=== PATIENT | female | born 1945 | race Caucasian/White ===

== ENCOUNTER 2018-06-03 11:03 | Outpatient (CLI) | payer MEDICARE, MEDICAID ==
--- NOTE | 2018-06-03 14:41 | BD ---
BONE DENSITOMETRY USING DEXA: Date: 06/03/18 HISTORY: Postmenopausal screening for osteoporosis. FINDINGS: Lumbar Spine: BMD (g/cm2) L1 0.905 T-Score: -0.8 Z-Score: 1.2 L2 1.168 T-Score: 1.3 Z-Score: 3.5 L3 0.982 T-Score: -0.9 Z-Score: 1.4 L4 0.952 T-Score: -1.9 Z-Score: 1.4 L1-L4 1.010 T-Score: -0.3 Z-Score: 1.9 Femoral Neck: 0.450 T-Score: -3.6 Z-Score: -1.6 Total Femur: 0.714 T-Score: -1.9 Z-Score: -0.2 IMPRESSION: Osteoporosis. POS: [facility]
== END 2018-06-03 11:04 | disposition home or self-care (01) ==
LOC: BICMAMMO 11:03
PROVIDERS: ATTEND Specialist
DX: Z12.31 Encounter for screening mammogram for malignant neoplasm of breast (principal); Z13.820 Encounter for screening for osteoporosis; N63.10 Unspecified lump in the right breast, unspecified quadrant; N63.20 Unspecified lump in the left breast, unspecified quadrant; M81.0 Age-related osteoporosis without current pathological fracture
CPT/HCPCS: 77063; 77067; 77080

== ENCOUNTER 2019-01-15 16:29 | Emergency (ER) | payer MEDICARE, MEDICAID ==
[2019-01-15] MEDS ORDERED: HYDROcodone/Acetaminophen 10/325 mg Tablet ONE (16:55)
--- NOTE | 2019-01-15 17:08 | RAD ---
XR Foot Lt 3 View STANDARD HISTORY: Injury, left foot pain FINDINGS: No fracture or dislocation is identified.
== END 2019-01-15 17:35 | disposition home or self-care (01) ==
LOC: ERS 16:29
DX: S93.602A Unspecified sprain of left foot, initial encounter (principal); K21.9 Gastro-esophageal reflux disease without esophagitis; I10 Essential (primary) hypertension; F41.9 Anxiety disorder, unspecified; F17.210 Nicotine dependence, cigarettes, uncomplicated; Z79.82 Long term (current) use of aspirin; Z79.899 Other long term (current) drug therapy; W18.11XA Fall from or off toilet without subsequent striking against object, initial encounter

== ENCOUNTER 2019-02-24 12:32 | Outpatient (CLI) | payer MEDICARE, MEDICAID ==
--- NOTE | 2019-02-24 13:05 | RAD ---
2 views of the chest: 02/24/2019 COMPARISON: 05/06/2005 HISTORY: COPD FINDINGS: Numerous old left-sided rib fractures are noted. There is a left shoulder arthroplasty pres ent. There is prominent dextroscoliosis at the thoracolumbar junction. Mild stable increased linear interstitial density. No pneumothorax or pleural fluid. No focal consolidation or alveolar edema. Mil d hyperinflation again noted. IMPRESSION: Mild increased linear interstitial density with pulmonary hyperinflation consistent with the provided history of COPD. No acute findings.
--- NOTE | 2019-02-24 13:31 | RAD ---
LUMBAR SPINE TWO VIEWS: 02/24/19 HISTORY: Fall about one and a half months ago. Lower back pain. FINDINGS/IMPRESSION: Comparison made to exam of 06/04/11. Degenerative changes with dextroscoliosis of the lumbar spine is again seen. An old fracture of the L 2 vertebral body is again seen. There are vascular calcifications. A left hip arthroplasty is present . POS: [facility]
== END 2019-02-24 12:33 | disposition home or self-care (01) ==
LOC: BICRAD 12:32
PROVIDERS: ATTEND Specialist
DX: J44.9 Chronic obstructive pulmonary disease, unspecified (principal); M54.5 Low back pain; R91.8 Other nonspecific abnormal finding of lung field; M47.816 Spondylosis without myelopathy or radiculopathy, lumbar region; M41.9 Scoliosis, unspecified; J98.4 Other disorders of lung; I70.90 Unspecified atherosclerosis; Z96.642 Presence of left artificial hip joint
CPT/HCPCS: 71046; 72100

== ENCOUNTER 2019-03-18 11:54 | Emergency (ER) | payer MEDICARE, OTHER ==
--- NOTE | 2019-03-18 13:10 | CT ---
CT CERVICAL SPINE NONCONTRAST: DATE: 03/18/2019 HISTORY: cervical trauma 73-year-old female. COMPARISON: 11/29/2014 FINDINGS: There are no jumped or perched facets. There is no evidence of acute fracture. The vertebral body hei ghts are maintained. There is no prevertebral soft tissue swelling. New finding of soft tissue thickening at the left side of the oral pharynx, with effacement of left glossopharyngeal sulcus, and involvement of the left side of lingual tonsil. The previously demonstrated fracture of the body of C2 has healed, with chronic anterior subluxation of the cranium, C1, and the odontoid process, rel ative to C2 and the rest of the cervical spine. High-grade degenerative disc disease at C5-6 and C6-7. High-grade facet DJD on the left at C2-3, C3-4, and C4-5, and to a lesser degree on the right a t C4-5. IMPRESSION: 1. No evidence of acute fracture or acute traumatic subluxation. 2. Possibility of head and neck cancer: Possible infiltrative neoplastic lesion at left side of oroph arynx. Recommend ENT consultation for direct visualization. 3. Sequelae of prior type III odontoid fracture, with deformity. 4. Cervical spondylosis, with high-grade degenerative disc disease at C5-6 and C6-7, and high-grade l eft facet osteoarthrosis at mid and upper levels.
[2019-03-18 13:20] LABS: #Monocytes 0.5 thou/uL (0.11-0.59); #Neutrophils 5.5 thou/uL (1.40-6.50); %Basophils 0.2 % (0.0-1.0); %Eosinophils 0.7 % (0.0-10.0); %Lymphocytes 14.4 % (21.0-51.0); %Monocytes 7.1 % (0.0-10.0); %Neutrophils 77.6 % (42.0-75.0); Hemoglobin 12.8 g/dL (12.0-16.0); Mean Corpuscular HGB CONC 33.9 g/dL (32.0-36.0); Mean Corpuscular Hemoglobin 31.8 pg (27.0-31.0); Mean Corpuscular Volume 93.9 fL (78.0-98.0); Mean Platelet Volume 8.1 fL (7.4-10.4); Platelet Count 202 thou/uL (130-400); RBC Distribution Width 11.7 % (11.5-14.5); Red Blood Cell (RBC) Count 4.01 mill/uL (4.20-5.40); White Blood Cell (WBC) Count 7.1 thou/uL (4.8-10.8)
[2019-03-18 13:47] LABS: ALT (SGPT) 10 U/L (8-55); AST (SGOT) 17 U/L (5-34); Albumin 4.2 g/dL (3.4-4.8); Alkaline Phosphatase 63 U/L (40-150); Anion Gap 12 mmol/L (10-20); BUN (Urea Nitrogen) 8 mg/dL (9.8-20.1); Bilirubin, Total 0.8 mg/dL (0.2-1.2); Calc. Creatinine Clearance 0 mL/min (70-130); Calcium 9.5 mg/dL (7.8-10.44); Carbon Dioxide 25 mmol/L (23-31); Chloride 97 mmol/L (98-107); Estimated GFR-MDRD 73; Glucose 78 mg/dL (83-110); Potassium 3.5 mmol/L (3.5-5.1); Protein, Total 7.2 g/dL (6.0-8.3); Sodium 130 mmol/L (136-145)
[2019-03-18 13:55] LABS: Bilirubin Negative (Negative); Blood, Urine Negative (Negative); Clarity Turbid (Clear); Glucose, Urine (Dipstick) Normal (Negative); Leukocyte 500 Leu/uL (Negative); Nitrite Negative (Negative); Protein, Urine (Dipstick) Negative (Neg-Trace); RBC/HPF 0-3 HPF (0-3); Squamous Epithelial 0-3 HPF (0-3); Urobilinogen Normal mg/dL (Less than 2); WBC/HPF Greater than 50 HPF (0-3)
[2019-03-18 14:12] LABS: Bacteria/HPF 1+ HPF (None Seen)
--- NOTE | 2019-03-22 08:27 | CT ---
CT OF THE BRAIN WITHOUT CONTRAST: 03/18/19 HISTORY: Frontal headaches status post fall. FINDINGS: Comparison made with CT scan of 10/31/15 and MRI of 01/17/16. Encephalomalacia in the right frontoparietal lobe and postop changes of right frontal craniotomy are again seen. There are calcifications in the region of the cavernoma in the left frontal lobe. Ventric ular size is stable and the basilar cisterns are patent. No evidence of acute infarct, hemorrhage, midline shift, or abnormal extra-axial fluid collections ar e seen. The basilar cisterns are patent. No acute calvarial fracture is seen. IMPRESSION: No CT evidence of acute intracranial process. POS: [facility]
--- NOTE | 2019-03-22 09:05 | CT ---
CT CERVICAL SPINE NONCONTRAST: DATE: 03/18/2019 HISTORY: cervical trauma 73-year-old female. COMPARISON: 11/29/2014 FINDINGS: There are no jumped or perched facets. There is no evidence of acute fracture. The vertebral body hei ghts are maintained. There is no prevertebral soft tissue swelling. New finding of soft tissue thickening at the left side of the oral pharynx, with effacement of left glossopharyngeal sulcus, and involvement of the left side of lingual tonsil. The previously demonstrated fracture of the body of C2 has healed, with chronic anterior subluxation of the cranium, C1, and the odontoid process, rel ative to C2 and the rest of the cervical spine. High-grade degenerative disc disease at C5-6 and C6-7. High-grade facet DJD on the left at C2-3, C3-4, and C4-5, and to a lesser degree on the right a t C4-5. IMPRESSION: 1. No evidence of acute fracture or acute traumatic subluxation. 2. Possibility of head and neck cancer: Possible infiltrative neoplastic lesion at left side of oroph arynx. Recommend ENT consultation for direct visualization. 3. Sequelae of prior type III odontoid fracture, with deformity. 4. Cervical spondylosis, with high-grade degenerative disc disease at C5-6 and C6-7, and high-grade l eft facet osteoarthrosis at mid and upper levels. Transcribed Date/Time: 03/22/2019 9:05 AM
== END 2019-03-18 15:08 | disposition home or self-care (01) ==
LOC: ERS 11:54
DX: S05.12XA Contusion of eyeball and orbital tissues, left eye, initial encounter (principal); S05.11XA Contusion of eyeball and orbital tissues, right eye, initial encounter; N39.0 Urinary tract infection, site not specified; M53.82 Other specified dorsopathies, cervical region; I10 Essential (primary) hypertension; K21.9 Gastro-esophageal reflux disease without esophagitis; F41.9 Anxiety disorder, unspecified; F17.210 Nicotine dependence, cigarettes, uncomplicated; Z79.899 Other long term (current) drug therapy; Z79.82 Long term (current) use of aspirin; W18.30XA Fall on same level, unspecified, initial encounter; Y92.009 Unspecified place in unspecified non-institutional (private) residence as the place of occurrence of the external cause
CPT/HCPCS: 36415; 70450; 72125; 80053; 81003; 81015; 84484; 85025; 87077; 87086; 87186

== ENCOUNTER 2019-06-17 03:27 | Emergency (ER) | payer MEDICARE, OTHER ==
[2019-06-17] MEDS ORDERED: Ondansetron PF 4 MG/2 ML Vial ONE (04:54)
[2019-06-17] MEDS ORDERED: Fentanyl 100 MCG/2 ML VIAL ONE (04:54)
[2019-06-17] MEDS ORDERED: D5 LR 500 ML IV SCH (05:15)
[2019-06-17 05:21] LABS: #Basophils 0.1 thou/uL (0.0-0.2); #Lymphocytes 0.9 thou/uL (1.20-3.40); #Neutrophils 8.3 thou/uL (1.40-6.50); %Basophils 0.5 % (0.0-1.0); %Eosinophils 0.4 % (0.0-10.0); %Lymphocytes 8.7 % (21.0-51.0); %Monocytes 9.5 % (0.0-10.0); %Neutrophils 80.8 % (42.0-75.0); Hemoglobin 14.5 g/dL (12.0-16.0); Mean Corpuscular HGB CONC 32.7 g/dL (32.0-36.0); Mean Corpuscular Hemoglobin 31.7 pg (27.0-31.0); Mean Platelet Volume 7.6 fL (7.4-10.4); Platelet Count 196 thou/uL (130-400); RBC Distribution Width 11.5 % (11.5-14.5); Red Blood Cell (RBC) Count 4.57 mill/uL (4.20-5.40); White Blood Cell (WBC) Count 10.3 thou/uL (4.8-10.8)
[2019-06-17 05:49] LABS: ALT (SGPT) 10 U/L (8-55); AST (SGOT) 25 U/L (5-34); Albumin 3.5 g/dL (3.4-4.8); Alkaline Phosphatase 173 U/L (40-110); Anion Gap 15 mmol/L (10-20); BUN (Urea Nitrogen) 13 mg/dL (9.8-20.1); Bilirubin, Total 1.4 mg/dL (0.2-1.2); Calc. Creatinine Clearance 0 mL/min (70-130); Carbon Dioxide 20 mmol/L (23-31); Chloride 107 mmol/L (98-107); Estimated GFR-MDRD 70; Globulin 2.8 g/dL (2.4-3.5); Glucose 112 mg/dL (83-110); Lipase Less than 4 U/L (8-78); Protein, Total 6.3 g/dL (6.0-8.3); Sodium 137 mmol/L (136-145)
[2019-06-17 08:05] LABS: Blood, Urine Small (Negative); Glucose, Urine (Dipstick) 500 mg/dL (Negative); Leukocyte Negative (Negative); Nitrite Negative (Negative); Protein, Urine (Dipstick) Negative (Neg-Trace)
[2019-06-17 08:09] LABS: Clarity Clear (Clear)
[2019-06-17] MEDS ORDERED: Acetaminophen 500 MG TAB ONE (08:12)
[2019-06-17 08:14] LABS: Bilirubin Small (Negative); Urobilinogen 0.2 mg/dL (Less than 2)
[2019-06-17 08:25] LABS: RBC/HPF 0-3 HPF (0-3); Transitional Epithelial 0-3 HPF (None Seen); WBC/HPF 0-3 HPF (0-3)
[2019-06-17 08:26] LABS: Bacteria/HPF Rare-Few HPF (None Seen)
--- NOTE | 2019-06-17 08:33 | CT ---
PRELIMINARY REPORT/[facility]/EMERGENCY AFTER HOURS PROCEDURE: PROCEDURE INFORMATION: Exam: CT Abdomen And Pelvis With Contrast Exam date and time: 06/17/2019 4:30 AM Clinical history: 73 years old, female; Abdominal pain; Generalized; Patient HX: PT from home called EMS after going to bed around 1300 due to feeling sick and nausea. Woke up with stomach cramps and de ficated on self in bed. Surgical history of hysterectomy TECHNIQUE: Imaging protocol: Computed tomography of the abdomen and pelvis with intravenous contrast. COMPARISON: CT Abdomen Pelvis WO Con 05/21/2019 5:41 AM FINDINGS: Lungs: No consolidations in the lung bases. Mediastinum: Small hiatal hernia. Liver: Stable hypodensities in the liver. Gallbladder and bile ducts: Tiny layering gallstones. The gallbladder is distended, stable finding. N o biliary dilation. Pancreas: No pancreatic mass or ductal dilation. Spleen: No mass. Adrenals: No adrenal nodules. Kidneys and ureters: No enhancing mass or hydronephrosis. Stomach and bowel: Nonspecific debris in the fundus of the stomach. Moderate air-fluid distention of the stomach. Colonic wall thickening and hyperemia, predominantly of the transverse and descending co leonid. No bowel obstruction. Appendix: The appendix is not visualized. Intraperitoneal space: No free air or free fluid. Vasculature: Atherosclerosis of the aorta without aneurysm. Lymph nodes: No lymphadenopathy. Bladder: Normal bladder. Reproductive: The uterus is not visualized. No adnexal masses. Stable left ovarian dermoid cyst. Bones/joints: Old rib fractures. Old bilateral inferior pubic rami fractures. Left hip arthroplasty. Severe chronic fracture deformities of L1 and L2. Soft tissues: No acute findings. IMPRESSION: Findings consistent with colitis predominantly involving transverse and descending colon. Stool diste ntion of the rectosigmoid colon. Rectum is distended to 7.6 cm. Thank you for allowing us to participate in the care of your patient. Dictated and Authenticated by: Bhavna Benedict MD 06/17/2019 4:55 AM Central Time ([place] & [place]) FINAL REPORT CT ABDOMEN AND PELVIS WITH IV CONTRAST: IMPRESSION: I agree with the preliminary report given by Corine. POS: [facility]
[2019-06-17] MEDS ORDERED: Iopamidol-370 76% 500 ML 1 ML ONE (15:03)
== END 2019-06-17 08:45 | disposition home or self-care (01) ==
LOC: ERS 03:27
DX: K52.9 Noninfective gastroenteritis and colitis, unspecified (principal); I10 Essential (primary) hypertension; K21.9 Gastro-esophageal reflux disease without esophagitis; M81.0 Age-related osteoporosis without current pathological fracture; F41.9 Anxiety disorder, unspecified; F17.210 Nicotine dependence, cigarettes, uncomplicated; Z79.899 Other long term (current) drug therapy; Z79.82 Long term (current) use of aspirin
CPT/HCPCS: 36415; 51701; 74177; 80053; 81003; 81015; 83690; 85025; 87086; 96361; 96374; 96375; A4353; J2405; J3010; J7121; Q9967

== ENCOUNTER 2019-08-03 15:47 | Emergency (ER) | payer MEDICARE, OTHER ==
--- NOTE | 2019-08-03 17:12 | CT ---
CT BRAIN NONCONTRAST: DATE: 08/03/2019 HISTORY: 74-year-old female status post acute head trauma from fall. Posttraumatic headache. COMPARISON: 10/31/2015, 03/18/2019 FINDINGS: Approximately 1.5 cm left frontal lobe intra-axial lesion with coarse calcifications. Prior MRI demon strated cavernous malformation. Moderately large region of encephalomalacia and gliosis involving the upper portion of the right cere maikel involving posterior upper frontal lobe and adjacent parietal lobe. Overlying right upper old craniotomy changes. Ex vacuo dilation of portion of right lateral ventricle body. No obstructive hydr ocephalus. No acute intra-axial hemorrhage, mass effect, midline shift, or extra-axial fluid collection. No acute calvarial fracture. No interval change overall. IMPRESSION: 1. No acute intracranial findings. 2. Moderately large region of old insult in the right upper cerebrum with overlying old craniotomy ch anges. 3. Left frontal lobe cavernous malformation.
== END 2019-08-03 18:37 | disposition home or self-care (01) ==
LOC: ERS 15:47
DX: S00.83XA Contusion of other part of head, initial encounter (principal); M79.10 Myalgia, unspecified site; I10 Essential (primary) hypertension; F41.9 Anxiety disorder, unspecified; Z87.891 Personal history of nicotine dependence; W01.10XA Fall on same level from slipping, tripping and stumbling with subsequent striking against unspecified object, initial encounter
CPT/HCPCS: 70450

== ENCOUNTER 2020-01-21 00:55 | Emergency (ER) | payer MEDICARE, OTHER ==
--- NOTE | 2020-01-21 07:00 | CT ---
PRELIMINARY REPORT/[facility]/EMERGENCY AFTER HOURS PROCEDURE: EXAM: CT Head and Cervical Spine Without IV contrast. CLINICAL HISTORY: PT FROM [place] S/P MECHANICAL FALL. HEMATOMA ON R ELBOW A&O X4 NO LOC. TECHNIQUE: Axial computed tomography images were acquired of the head and the cervical spine without intravenous contrast. Sagittal and coronal reformatted images were obtained of the cervical spine. COMPARISON: 08/03/2019. FINDINGS: BRAIN: No acute intraparenchymal hemorrhage. No mass lesion. No CT evidence for acute territorial infarct. N o midline shift or extra-axial collection. Encephalomalacia in the right frontal lobe related to a p rior mass resection. 1.2 x 0.9 cm dystrophic calcification in the left frontal lobe. Mild generaliz ed cerebral atrophy. Arteriosclerosis. VENTRICLES No hydrocephalus. ORBITS The orbits are unremarkable. SINUSES AND MASTOIDS The paranasal sinuses and mastoid air cells are clear. SOFT TISSUES No significant facial or scalp soft tissue swelling evident. No radiopaque foreign body is seen. Ath erosclerosis of the bilateral carotid vessels. BONES No acute osseous pathology evident. Right frontotemporal craniotomy with bridging hardware. No acute fracture is evident on images of the head or cervical spine. Osteopenia. DISKS/DEGENERATIVE CHANGES Multilevel disc narrowing and osteophytosis, severe at C5-C6 and C6-C7. Multilevel facet spondylosi, derate bilateral foraminal stenosis at C5-C6 with moderate bilateral foraminal stenosis at C6-C7. Posterior cervical spine vertebral body alignment is within normal limits. IMPRESSION: 1. No acute intracranial findings. No acute intracranial injury evident. 2. No cervical spine fracture evident. ELECTRONICALLY SIGNED BY: Blake Tony MD Jan 21, 2020 2:34:38 AM CDT This report is intended for review by the ordering physician only, in accordance of law. If you recei ve this report in error, please call [facility] at [phone]. FINAL REPORT EMERGENCY AFTER HOURS CT BRAIN WITHOUT CONTRAST: COMPARISON: 08/03/2019. FINDINGS/IMPRESSION: I agree with the findings and impression given in the preliminary report per [facility]. No evidence of acute intracranial abnormality. POS: [facility]
--- NOTE | 2020-01-21 07:01 | CT ---
PRELIMINARY REPORT/[facility]/EMERGENCY AFTER HOURS PROCEDURE: EXAM: CT Head and Cervical Spine Without IV contrast. CLINICAL HISTORY: PT [place] S/P MECHANICAL FALL. HEMATOMA ON R ELBOW A&O X4 NO LOC. TECHNIQUE: Axial computed tomography images were acquired of the head and the cervical spine without intravenous contrast. Sagittal and coronal reformatted images were obtained of the cervical spine. COMPARISON: 08/03/2019. FINDINGS: BRAIN: No acute intraparenchymal hemorrhage. No mass lesion. No CT evidence for acute territorial infarct. N o midline shift or extra-axial collection. Encephalomalacia in the right frontal lobe related to a p rior mass resection. 1.2 x 0.9 cm dystrophic calcification in the left frontal lobe. Mild generaliz ed cerebral atrophy. Arteriosclerosis. VENTRICLES No hydrocephalus. ORBITS The orbits are unremarkable. SINUSES AND MASTOIDS The paranasal sinuses and mastoid air cells are clear. SOFT TISSUES No significant facial or scalp soft tissue swelling evident. No radiopaque foreign body is seen. Ath erosclerosis of the bilateral carotid vessels. BONES No acute osseous pathology evident. Right frontotemporal craniotomy with bridging hardware. No acute fracture is evident on images of the head or cervical spine. Osteopenia. DISKS/DEGENERATIVE CHANGES Multilevel disc narrowing and osteophytosis, severe at C5-C6 and C6-C7. Multilevel facet spondylosi, derate bilateral foraminal stenosis at C5-C6 with moderate bilateral foraminal stenosis at C6-C7. Posterior cervical spine vertebral body alignment is within normal limits. IMPRESSION: 1. No acute intracranial findings. No acute intracranial injury evident. 2. No cervical spine fracture evident. ELECTRONICALLY SIGNED BY: Blake Tony MD Jan 21, 2020 2:34:38 AM CDT This report is intended for review by the ordering physician only, in accordance of law. If you recei ve this report in error, please call [facility] at [phone]. FINAL REPORT EMERGENCY AFTER HOURS CT CERVICAL SPINE WITHOUT CONTRAST: FINDINGS/IMPRESSION: I agree with the findings and impression given in the preliminary report per [facility]. Degenerative changes of the cervical spine without acute osseous abnormality. POS: [facility]
== END 2020-01-21 04:08 ==
LOC: ERS 00:55
DX: S50.01XA Contusion of right elbow, initial encounter (principal); S09.90XA Unspecified injury of head, initial encounter; I10 Essential (primary) hypertension; K21.9 Gastro-esophageal reflux disease without esophagitis; F41.9 Anxiety disorder, unspecified; Z87.891 Personal history of nicotine dependence; Z86.73 Personal history of transient ischemic attack (TIA), and cerebral infarction without residual deficits; W01.10XA Fall on same level from slipping, tripping and stumbling with subsequent striking against unspecified object, initial encounter
CPT/HCPCS: 70450; 72125

== ENCOUNTER 2021-02-05 01:22 | Emergency (ER) | payer MEDICARE, OTHER ==
[2021-02-05] MEDS ORDERED: Fentanyl 100 MCG/2 ML VIAL ONE (02:12)
== END 2021-02-05 04:24 ==
LOC: ERS 01:22
DX: S42.412A Displaced simple supracondylar fracture without intercondylar fracture of left humerus, initial encounter for closed fracture (principal); S49.102A Unspecified physeal fracture of lower end of humerus, left arm, initial encounter for closed fracture; M25.552 Pain in left hip; K21.9 Gastro-esophageal reflux disease without esophagitis; I10 Essential (primary) hypertension; M81.0 Age-related osteoporosis without current pathological fracture; Z79.899 Other long term (current) drug therapy; W19.XXXA Unspecified fall, initial encounter
CPT/HCPCS: 29105; 70450; 71045; 96372; J3010

== ENCOUNTER 2023-08-31 00:59 | Emergency (ER) | payer MEDICARE, OTHER ==
[2023-08-31] MEDS ORDERED: Ketorolac Tromethamine 30 MG (1 mL) VIAL ONE (01:36)
== END 2023-08-31 02:30 ==
LOC: ERS 00:59
DX: S50.02XA Contusion of left elbow, initial encounter (principal); I10 Essential (primary) hypertension; Z87.891 Personal history of nicotine dependence; W05.0XXA Fall from non-moving wheelchair, initial encounter
CPT/HCPCS: 96372; J1885